=== PATIENT | male | born 1990 | race African-American/Black ===

== ENCOUNTER 2019-08-12 11:30 | Emergency (ER) | payer SELFPAY ==
[2019-08-12 11:55] LABS: #Basophils 0.1 thou/uL (0.0-0.2); #Lymphocytes 3.3 thou/uL (1.20-3.40); #Monocytes 0.5 thou/uL (0.11-0.59); #Neutrophils 3.2 thou/uL (1.40-6.50); %Basophils 0.8 % (0.0-1.0); %Eosinophils 0.6 % (0.0-10.0); %Lymphocytes 46.9 % (21.0-51.0); %Monocytes 7.4 % (0.0-10.0); %Neutrophils 44.3 % (42.0-75.0); Hemoglobin 14.7 g/dL (14.0-18.0); Mean Corpuscular HGB CONC 33.2 g/dL (32.0-36.0); Mean Corpuscular Hemoglobin 30.2 pg (27.0-31.0); Mean Corpuscular Volume 90.9 fL (78.0-98.0); Mean Platelet Volume 7.6 fL (7.4-10.4); Platelet Count 223 thou/uL (130-400); RBC Distribution Width 13.4 % (11.5-14.5); Red Blood Cell (RBC) Count 4.87 mill/uL (4.70-6.10); White Blood Cell (WBC) Count 7.1 thou/uL (4.8-10.8)
[2019-08-12 12:18] LABS: ALT (SGPT) 79 U/L (8-55); AST (SGOT) 53 U/L (5-34); Albumin 4.7 g/dL (3.5-5.0); Alkaline Phosphatase 58 U/L (40-110); Anion Gap 15 mmol/L (10-20); BUN (Urea Nitrogen) 8 mg/dL (8.9-20.6); Bilirubin, Total 0.3 mg/dL (0.2-1.2); Calc. Creatinine Clearance 0 mL/min (70-130); Calcium 8.9 mg/dL (7.8-10.44); Carbon Dioxide 28 mmol/L (22-29); Chloride 107 mmol/L (98-107); Estimated GFR-MDRD Greater than 90; Globulin 2.9 g/dL (2.4-3.5); Glucose 91 mg/dL (70-105); Lipase 29 U/L (8-78); Potassium 3.1 mmol/L (3.5-5.1); Protein, Total 7.6 g/dL (6.0-8.3); Sodium 147 mmol/L (136-145)
[2019-08-12] MEDS ORDERED: Ondansetron PF 4 MG/2 ML Vial ONE (12:44)
[2019-08-12 13:03] LABS: Acetaminophen Less than 6.0 mcg/mL (10.0-30.0); Salicylate Less than 8.0 mg/dL (15.0-30.0)
[2019-08-12 13:11] LABS: Alcohol 434 mg/dL (Less than 10)
--- NOTE | 2019-08-12 13:34 | ULT ---
ULTRASOUND GALLBLADDER RIGHT UPPER QUADRANT: CLINICAL HISTORY: Abdominal pain. COMPARISON: None.. FINDINGS: Pancreas: The head of the pancreas has a normal echotexture. The remainder the pancreas is obscured b y bowel gas. Liver:Heterogeneous echotexture which may be due to hepatic steatosis or hepatocellular disease. Limi uriel evaluation for hepatic masses and intrahepatic biliary dilatation. Focal fatty sparing near the gallbladder fossa measuring 3.6 x 2.2 x 1.3 cm. Right hepatic lobe measures 17.3 cm. Gallbladder: No sonographic evidence of cholelithiasis, gallbladder wall thickening or pericholecysti c fluid. Rubio's sign:Negative. Portal Vein: Patent. Appropriate directional flow. Bile ducts: Suboptimal evaluation. Right kidney: No hydronephrosis. Right kidney measures 10.6 x 4.3 x 5.8 cm in length. IMPRESSION: 1. No sonographic evidence of cholelithiasis or cholecystitis. 2. Suboptimal evaluation the common bile duct. 3. Hepatic steatosis with focal fatty sparing of the gallbladder fossa. Transcribed Date/Time: 08/12/2019 1:39 PM
[2019-08-12] MEDS ORDERED: Potassium Chloride 20 MEQ TAB ONE (13:52)
[2019-08-12 14:19] LABS: Bilirubin Negative (Negative); Blood, Urine Negative (Negative); Clarity Clear (Clear); Glucose, Urine (Dipstick) Normal (Negative); Leukocyte Negative Leu/uL (Negative); Nitrite Negative (Negative); Protein, Urine (Dipstick) Negative (Neg-Trace); Urobilinogen Normal mg/dL (Less than 2)
[2019-08-12 14:27] LABS: Amphetamine Not Detected (NotDetected); Barbiturates Screen Not Detected (NotDetected); Benzodiazepine Screen Not Detected (NotDetected); Cocaine Metabolite Screen Not Detected (NotDetected); Medtox Control Line Valid? VALID (VALID); Medtox Reader # READER 4; Methadone Not Detected (NotDetected); Methamphetamine Not Detected (NotDetected); Opiate Screen Not Detected (NotDetected); Oxycodone Screen Not Detected (NotDetected); Phencyclidine (PCP) Not Detected (NotDetected); THC/Cannabinoid Screen Not Detected (NotDetected); Tricyclic Screen Not Detected (NotDetected)
[2019-08-12] MEDS ORDERED: chlordiazePOXIDE HCl 25 MG CAP ONE (14:27)
[2019-08-12] MEDS ORDERED: Nicotine 14 MG PATCH TOP SCH (14:45)
== END 2019-08-12 15:25 | disposition home or self-care (01) ==
LOC: ERS 11:30
DX: K70.0 Alcoholic fatty liver (principal); F10.10 Alcohol abuse, uncomplicated; R74.8 Abnormal levels of other serum enzymes; F17.210 Nicotine dependence, cigarettes, uncomplicated; Y90.8 Blood alcohol level of 240 mg/100 ml or more
CPT/HCPCS: 36415; 76705; 80053; 80306; 80307; 81003; 83690; 85025; 96361; 96374; J2405

== ENCOUNTER 2019-08-24 01:14 | Inpatient (IN) | payer SELFPAY ==
[2019-08-24 02:09] LABS: #Eosinphils 0.1 thou/uL (0.0-0.7); #Lymphocytes 2.7 thou/uL (1.20-3.40); #Monocytes 0.6 thou/uL (0.11-0.59); #Neutrophils 3.9 thou/uL (1.40-6.50); %Basophils 0.6 % (0.0-1.0); %Eosinophils 1.2 % (0.0-10.0); %Lymphocytes 37.1 % (21.0-51.0); %Monocytes 7.6 % (0.0-10.0); %Neutrophils 53.5 % (42.0-75.0); Hemoglobin 14.1 g/dL (14.0-18.0); Mean Corpuscular HGB CONC 33.3 g/dL (32.0-36.0); Mean Corpuscular Hemoglobin 30.7 pg (27.0-31.0); Mean Corpuscular Volume 92.2 fL (78.0-98.0); Mean Platelet Volume 8.4 fL (7.4-10.4); Platelet Count 149 thou/uL (130-400); RBC Distribution Width 13.1 % (11.5-14.5); Red Blood Cell (RBC) Count 4.59 mill/uL (4.70-6.10); White Blood Cell (WBC) Count 7.2 thou/uL (4.8-10.8)
[2019-08-24 02:31] LABS: ALT (SGPT) 61 U/L (8-55); AST (SGOT) 36 U/L (5-34); Acetaminophen Less than 6.0 mcg/mL (10.0-30.0); Albumin 4.3 g/dL (3.5-5.0); Alcohol 203 mg/dL (Less than 10); Alkaline Phosphatase 62 U/L (40-110); Anion Gap 12 mmol/L (10-20); BUN (Urea Nitrogen) 8 mg/dL (8.9-20.6); Bilirubin, Total 0.2 mg/dL (0.2-1.2); CK (CPK) 275 U/L (30-200); Calc. Creatinine Clearance 0 mL/min (70-130); Calcium 9.2 mg/dL (7.8-10.44); Carbon Dioxide 26 mmol/L (22-29); Chloride 111 mmol/L (98-107); Estimated GFR-MDRD Greater than 90; Globulin 2.7 g/dL (2.4-3.5); Glucose 88 mg/dL (70-105); Potassium 3.4 mmol/L (3.5-5.1); Salicylate Less than 8.0 mg/dL (15.0-30.0); Sodium 146 mmol/L (136-145)
[2019-08-24] MEDS ORDERED: Nicotine 14 MG PATCH TOP SCH (03:45)
[2019-08-24 04:19] VITALS: BMI 37.6
[2019-08-24] MEDS ORDERED: Dextrose 5 % And 0.9 % NaCl 1,000 ML IV SCH (04:30)
[2019-08-24 05:09] LABS: Lactic Acid 3.6 mmol/L (0.5-2.2)
[2019-08-24 07:03] LABS: Bilirubin Negative (Negative); Blood, Urine Negative (Negative); Clarity Clear (Clear); Glucose, Urine (Dipstick) Normal (Negative); Leukocyte Negative Leu/uL (Negative); Nitrite Negative (Negative); Protein, Urine (Dipstick) Negative (Neg-Trace); Urobilinogen Normal mg/dL (Less than 2)
[2019-08-24 07:13] LABS: Amphetamine Not Detected (NotDetected); Cocaine Metabolite Screen Not Detected (NotDetected); Medtox Reader # READER 1; Methamphetamine Not Detected (NotDetected); Opiate Screen Not Detected (NotDetected); Phencyclidine (PCP) Not Detected (NotDetected); THC/Cannabinoid Screen Not Detected (NotDetected)
[2019-08-24 07:14] LABS: Barbiturates Screen Not Detected (NotDetected); Benzodiazepine Screen Detected (NotDetected); Medtox Control Line Valid? VALID (VALID); Methadone Not Detected (NotDetected); Oxycodone Screen Not Detected (NotDetected); Tricyclic Screen Not Detected (NotDetected)
--- NOTE | 2019-08-24 08:09 | CT ---
PRELIMINARY REPORT/[facility]/EMERGENCY AFTER HOURS PROCEDURE: PROCEDURE INFORMATION: Exam: CT Chest With Contrast Exam date and time: 08/24/2019 2:19 AM Age: 29 years old Clinical history: Injury or trauma; Initial encounter; Abrasion; Patient HX: Er 6. Fall; Took unk num javier of pills around 2300. . . . Possibly 30 librium. Possibly metformin also. ETOH on board. Bg 117. Slipped backwards down 3 stairs. TECHNIQUE: Imaging protocol: Computed tomography of the chest with intravenous contrast. COMPARISON: No relevant prior studies available. FINDINGS: Lungs: Lungs are clear allowing for expiratory phase imaging. No pulmonary contusion. Pleural space: No pneumothorax or hemothorax. Heart: Unremarkable. No cardiomegaly. No pericardial effusion. Mediastinum: Esophagus is unremarkable. Aorta: No traumatic aortic injury. No mediastinal hematoma, pneumomediastinum, or hemopericardium. Lymph nodes: Unremarkable. No enlarged lymph nodes. Bones/joints: Unremarkable. No acute fracture. Soft tissues: Unremarkable. IMPRESSION: No acute traumatic injury. PROCEDURE INFORMATION: Exam: CT Abdomen And Pelvis With Contrast Exam date and time: 08/24/2019 2:19 AM Age: 29 years old Clinical history: Injury or trauma; Initial encounter; Abrasion; Patient HX: Er 6. Fall; Took unk num javier of pills around 2300. . . . Possibly 30 librium. Possibly metformin also. ETOH on board. Bg 117. Slipped backwards down 3 stairs. TECHNIQUE: Imaging protocol: Computed tomography of the abdomen and pelvis with intravenous contrast. COMPARISON: No relevant prior studies available. FINDINGS: Liver: Normal. No mass. Gallbladder and bile ducts: Normal. No calcified stones. No ductal dilation. Pancreas: Normal. No ductal dilation. Spleen: Normal. No splenomegaly. Adrenals: Normal. No mass. Kidneys and ureters: Normal. No hydronephrosis. Stomach and bowel: No bowel wall thickening or intestinal obstruction. Appendix: Normal appendix. Intraperitoneal space: No hemoperitoneum, pneumoperitoneum, mesenteric/omental contusion, or retroper itoneal hematoma. Vasculature: Unremarkable. No abdominal aortic aneurysm. Lymph nodes: Unremarkable. No enlarged lymph nodes. Bladder: Unremarkable as visualized. Reproductive: Unremarkable as visualized. Bones/joints: Unremarkable. No acute fracture. Soft tissues: Unremarkable. Other findings: No traumatic organ injury. IMPRESSION: No acute traumatic injury. Thank you for allowing us to participate in the care of your patient. Dictated and Authenticated by: Pedro Kaur MD 08/24/2019 2:36 AM Central Time ([place] & [place]) FINAL REPORT I agree with the preliminary report provided. No acute traumatic injury demonstrated. POS: BH
--- NOTE | 2019-08-24 08:10 | CT ---
PRELIMINARY REPORT/[facility]/EMERGENCY AFTER HOURS PROCEDURE: PROCEDURE INFORMATION: Exam: CT Cervical Spine Without Contrast Exam date and time: 08/24/2019 2:13 AM Age: 29 years old Clinical history: Injury or trauma; Initial encounter; Abrasion; Patient HX: Er 6. Fall; Took unk num javier of pills around 2300. . . . Possibly 30 librium. Possibly metformin also. ETOH on board. Bg 117. Slipped backwards down 3 stairs. TECHNIQUE: Imaging protocol: Computed tomography images of the cervical spine without contrast. COMPARISON: No relevant prior studies available. FINDINGS: Vertebrae: No acute fracture. Normal alignment. Discs/Spinal canal/Neural foramina: No spinal stenosis. No neural foraminal narrowing. Soft tissues: Unremarkable. Lungs: Lung apices are normal. IMPRESSION: No acute findings. Thank you for allowing us to participate in the care of your patient. Dictated and Authenticated by: Pedro Kaur MD 08/24/2019 2:31 AM Central Time ([place] & [place]) FINAL REPORT I agree with the preliminary report provided. No acute fracture or subluxation demonstrated. POS:
--- NOTE | 2019-08-24 08:11 | CT ---
PRELIMINARY REPORT/[facility]/EMERGENCY AFTER HOURS PROCEDURE: PROCEDURE INFORMATION: Exam: CT Head Without Contrast Exam date and time: 08/24/2019 2:16 AM Age: 29 years old Clinical history: Injury or trauma; Initial encounter; Abrasion; Not specified; Patient HX: Er 6. Fal l; Took unk number of pills around 2300. . . . Possibly 30 librium. Possibly metformin also. ETOH on board. Bg 117. Slipped backwards down 3 stairs. TECHNIQUE: Imaging protocol: Computed tomography of the head without contrast. COMPARISON: No relevant prior studies available. FINDINGS: Brain: Normal. No hemorrhage. Unremarkable white matter. No mass effect. Ventricles: Normal. No ventriculomegaly. Bones/joints: Unremarkable. No acute fracture. Sinuses: Visualized sinuses are unremarkable. No fluid levels. Mastoid air cells: Visualized mastoid air cells are well aerated. Soft tissues: Unremarkable. IMPRESSION: No acute intracranial abnormality. Thank you for allowing us to participate in the care of your patient. Dictated and Authenticated by: Pedro Kaur MD 08/24/2019 2:28 AM Central Time ([place] & [place]) FINAL REPORT I agree with the preliminary report provided. No acute intracranial abnormality. POS:
--- NOTE | 2019-08-24 11:01 | HP ---
CHIEF COMPLAINT: Alcohol intoxication, altered mental status, and medication overdose. HISTORY OF PRESENT ILLNESS: The patient is a 29-year-old male, who was admitted to the hospital for evaluation of overdose and management of his altered mental status, and apparently, he drinks alcohol every day and that is what he did last night and he took undisclosed amount of Librium, possibly metformin, we do not know exact number. Apparently, he was somewhat comatose in the emergency room and decision was made to admit him to the hospital for further management of his problem. He denies any fever or chills. He denies any head injury. He denies any headache. PAST MEDICAL HISTORY: None. PAST SURGICAL HISTORY: None. PSYCHIATRIC HISTORY: None. SOCIAL HISTORY: He drinks alcohol every day, more than 10 drinks per day, mostly vodka. He denies any drug use and he smokes about 2 packs of cigarettes usually 2 days. ALLERGIES: NONE. CURRENT MEDICATIONS: Librium. FAMILY HISTORY: Noncontributable. REVIEW OF SYSTEMS: All 14 systems were reviewed and they are negative except for positive findings in HPI. PHYSICAL EXAMINATION: GENERAL: He is not in any distress during my visit. VITAL SIGNS: His blood pressure is 119/77, pulse is 96, respiratory rate is 20, O2 saturation is 95% on room air, his temperature is 98.0. HEENT: His head is atraumatic, normocephalic. Eyes are PERRLA. Sclerae are nonicteric. Oral mucosa is somewhat dry. NECK: Supple. LUNGS: Clear. HEART: S1, S2 normal. No S3. No S4. No any murmur. ABDOMEN: Soft, nontender, and nondistended. Bowel sounds are present. No organomegaly. EXTREMITIES: No clubbing, cyanosis, or edema. NEUROLOGICAL: He is alert and oriented x4. There is no any motor or sensory deficits present. Cranial nerves are intact. LABORATORY DATA: Labs showed white count of 7.2, hemoglobin 14.1, hematocrit 42.3, platelet count is 149,000. Sodium of 146, potassium 3.4, chloride 112, BUN of 8, creatinine 0.82, glucose 88. Lactic acid 2.4. The followup lactic acid was 3.6. AST 36, ALT 61, creatine kinase 275, and the rest of chemistry is within normal limits. TSH third generation 0.4354. Urinalysis showed specific gravity of 0.044. Urine drug screen was positive for benzodiazepines. Plasma alcohol was 202. At the time of admission, brain CT did not show any acute abnormalities. Cervicals spine CT, negative. Chest, abdomen, and pelvis CT, no acute abnormalities. EKG showed normal sinus rhythm, no ischemic changes, normal axis. IMPRESSION: 1. Altered mental status, most likely secondary to alcohol abuse and recent medications overdose. 2. Medications overdose. We are not sure what he took. He says 3 tablets of Librium, may be metformin. 3. Dehydration. 4. Elevated liver enzymes, suggestive of alcoholic liver disease. 5. Hypokalemia. 6. Hypernatremia and hyperchloremia. 7. Alcohol intoxication. PLAN: Admission to the IM. Full admission condition is guarded. IV fluids for dehydration. When he is rehydrated, we will get [facility] involved. He will have DVT prophylaxis with SCDs and Lovenox. We will check his lactic acid and supplement potassium. Job ID: [id number]
[2019-08-24 11:19] VITALS: TEMP 98.6
[2019-08-24] MEDS ORDERED: Iopamidol 370 76% 50 ML VIAL FS ONE (12:05)
[2019-08-24 15:11] LABS: Anion Gap 14 mmol/L (10-20); BUN (Urea Nitrogen) 8 mg/dL (8.9-20.6); Calc. Creatinine Clearance 216 mL/min (70-130); Calcium 9.5 mg/dL (7.8-10.44); Carbon Dioxide 26 mmol/L (22-29); Chloride 107 mmol/L (98-107); Estimated GFR-MDRD Greater than 90; Glucose 77 mg/dL (70-105); Potassium 3.4 mmol/L (3.5-5.1); Sodium 144 mmol/L (136-145)
[2019-08-24 15:32] VITALS: BP 106/93
--- NOTE | 2019-08-24 16:14 | DIS ---
DATE OF ADMISSION: 08/24/2019 DATE OF DISCHARGE: 08/24/2019 FINAL DIAGNOSES: 1. Overdose of medication, unclear what it was, sounds like Librium, possibly metformin. 2. Alcohol intoxication. 3. Altered mental status, most likely secondary to alcohol abuse and recent medication overdose. 4. Dehydration. 5. Elevated liver enzymes, suggestive of alcoholic liver disease. 6. Hypokalemia. 7. Hypernatremia and hyperchloremia. HOSPITAL COURSE: The patient is a 29-year-old male, who was admitted to the hospital for evaluation of overdose and management of his altered mental status. Apparently, he drinks alcohol every day for long time and he took some pills, most likely Librium, but possibly metformin, we do not know how much. He was somewhat comatose in the emergency room, and decision was made to keep him in the hospital for further observation and management. He denied any headache. He denied any head injury. There was no any fever or chills. At the time of emergency room evaluation, his white count was 7.2, hemoglobin 14.1, hematocrit 42.3, platelet count was 149,000. Sodium 146, potassium 3.4, chloride 112, BUN 8, creatinine 0.82. Lactic acid was 2.4 and subsequent level was 3.6. Creatine kinase was 275, ALT 61, AST 36. TSH was normal. On urinalysis, specific gravity was very high at 0.044 which was suggestive of severe dehydration. Urine drug screen was positive for benzodiazepines. Plasma alcohol was 202. At the time of admission, he had brain CT done which did not show any acute abnormalities. Cervical spine CT was negative and chest, abdomen, and pelvis CT all were negative. EKG showed normal sinus rhythm without ischemic changes, normal axis. The patient was given IV fluids, got admitted to [facility] for further management. He was seen by [facility] for possible help with his alcoholism. We did not have any evidence that he tried to take his life. He did not have any suicidal ideations. During his hospitalization, he was supplemented with some potassium and at some point, he decided to leave the hospital against medical advice and he did around 1500 today. Job ID: [id number]
[2019-08-24] MEDS ORDERED: Prevnar 13-Val Conj/PF 0.5 ML SYRINGE IM ONE (21:00)
[2019-08-24] MEDS ORDERED: FLU VACC QS2019-20(6MOS UP)/PF 60 MCG/0.5 ML SYRINGE IM ONE (21:00)
[2019-08-25] MEDS ORDERED: Enoxaparin Sodium 40 MG/0.4 ML SYRINGE SC SCH (09:00)
--- NOTE | 2019-08-26 22:22 | PQF ---
Nkechi Olivier Jr, ZBIGNIEW A MD [id number] CLINICAL DOCUMENTATION CLARIFICATION FORM: POST DISCHARGE Addendum to original discharge summary date: ____ Late entry note date: __ DATE: 08/26/19 ATTN: Tenzin Stevenson Please exercise your independent, professional judgment in responding to the clarification form. Clinical indicators are provided on the bottom of this form for your review Please check appropriate box(s): [ ] Acute Toxic Encephalopathy [ ] Acute Metabolic Encephalopathy [ ] Transient Alteration of Awareness [ ] Other diagnosis [ ] Unable to determine In addition, please specify: Present on Admission (POA): [ ] Yes [ ] No [ ] Unable to determine For continuity of documentation, please document condition throughout progress notes and discharge summary. Thank You. CLINICAL INDICATORS - SIGNS / SYMPTOMS / LABS ED notes p2 08/24 Pt presents for evaluation of Overdose ED notes p2 08/24 [place] coma score E(2)V(4)M(5) ED notes p2 08/24 Between 2315 and 0000 pt took large dose of librium and possibly metformin, there has been no change in the pt's symptoms over time, associated with alcohol use H&P p1 08/24 Dr Caldwell evaluation of overdose and management of his altered mental status and apparently, he drinks alcohol every day and is what he did last night and he took undisclosed amount of Librium and possibly metformin RISK FACTORS H&P p2 08/24 Altered mental status, most likely secondary to alcohol abuse and recent medications overdose H&P p2 08/24 Dehydration H&P p2 08/24 Dehydration H&P p2 08/24 Hypokalemia, Hypernatremia and Hyperchloremia H&P p2 08/24 Alcohol intoxication TREATMENTS: H&P p2 08/24 Admission to [facility] H&P p2 08/24 IV fluids hydration H&P p2 08/24 Neuro check (This form is maintained as a part of the permanent medical record) 2014 [employer], [place]. All Rights Reserved [email or web address] [not provided] MTDD
== END 2019-08-24 15:20 | disposition left against medical advice (07) | DRG 917 ==
LOC: ERS 01:14 → IMCU/EMU 04:10
PROVIDERS: ADMIT Family Medicine; ATTEND Family Medicine
DX: T42.4X1A Poisoning by benzodiazepines, accidental (unintentional), initial encounter (principal); R40.2122 Coma scale, eyes open, to pain, at arrival to emergency department; E87.0 Hyperosmolality and hypernatremia; F10.288 Alcohol dependence with other alcohol-induced disorder; F10.229 Alcohol dependence with intoxication, unspecified; T38.3X1A Poisoning by insulin and oral hypoglycemic [antidiabetic] drugs, accidental (unintentional), initial encounter; E86.0 Dehydration; E87.6 Hypokalemia; E87.8 Other disorders of electrolyte and fluid balance, not elsewhere classified; T51.0X1A Toxic effect of ethanol, accidental (unintentional), initial encounter; R40.2352 Coma scale, best motor response, localizes pain, at arrival to emergency department; R40.2242 Coma scale, best verbal response, confused conversation, at arrival to emergency department; F17.210 Nicotine dependence, cigarettes, uncomplicated; K70.9 Alcoholic liver disease, unspecified; Y90.7 Blood alcohol level of 200-239 mg/100 ml; Z79.899 Other long term (current) drug therapy
CPT/HCPCS: 36415; 70450; 71260; 72125; 74177; 80053; 80306; 80307; 81003; 82550; 83605; 83735; 84443; 85025; 93005; L0120; Q9967

== ENCOUNTER 2020-06-17 13:02 | Outpatient (CLI) | payer OTHER ==
--- NOTE | 2020-06-17 14:04 | RAD ---
Exam: Thoracic spine 3 views HISTORY: Pain. Fall. FINDINGS: AP, swimmer's and lateral view of the thoracic spine are submitted for dictation Lateral and swimmer's views are limited due to motion 12 thoracic type vertebra. Vertebral body heights appear to be maintained. No fractures or malalignme nt. Preserved disc space heights IMPRESSION: No radiographic evidence of fracture. If there is pain or point tenderness, follow-up thomas ging with MRI can be performed.
--- NOTE | 2020-06-17 14:05 | RAD ---
Exam: 2 views lumbar spine HISTORY: Pain. Fall. FINDINGS: 5 lumbar type vertebra. Lumbar spine vertebral body heights are maintained. No fracture. Di sc space heights are preserved. No spondylolisthesis or spondylolysis Visualized sacrum and bony pelvis are intact IMPRESSION: No radiographic evidence of fracture. If there is still concern for possible radiographic ally occult injury, consider MRI.
== END 2020-06-17 13:03 | disposition home or self-care (01) ==
LOC: BICRAD 13:02
PROVIDERS: ATTEND Specialist
DX: S39.92XA Unspecified injury of lower back, initial encounter (principal); S29.9XXA Unspecified injury of thorax, initial encounter; W19.XXXA Unspecified fall, initial encounter
CPT/HCPCS: 72072; 72100

== ENCOUNTER 2025-09-04 16:21 | Emergency (ER) | payer OTHER | END 2025-09-04 20:26 | disposition left against medical advice (07) | LOC: ERS 16:21 | DX: Z53.21 Procedure and treatment not carried out due to patient leaving prior to being seen by health care provider (principal) | CPT/HCPCS: 70450; 70486; 72125 ==